=== PATIENT | male | born 1945 | race Caucasian/White ===

== ENCOUNTER → 2024-03-03 | Outpatient (REF) | LOC: M PLAIMG 13:31 | PROVIDERS: ATTEND Internal Medicine | DX: R06.02 Shortness of breath (principal) ==

== ENCOUNTER → 2024-04-19 | Outpatient (REF) | LOC: M PLAIMG 08:48 | PROVIDERS: ATTEND Internal Medicine | DX: R06.02 Shortness of breath (principal) ==